=== PATIENT | female | born 1950 | race Caucasian/White ===

== ENCOUNTER → 2019-06-19 08:29 | Outpatient (CLI) | payer MEDICARE, SELFPAY ==
--- NOTE | ~2019-06-19 | MR_ITS ---
EXAMINATION: MR shoulder LT wo con DATE: 06/19/2019 09:12 INDICATION: Adhesive capsulitis of the left shoulder with left shoulder pain. TECHNIQUE: Magnetic resonance imaging (MRI) of the left shoulder was performed without intravenous co ntrast. Sequences included axial PD-weighted FS FSE, coronal oblique PD-weighted FS FSE, coronal obli que T2-weighted FS FSE, sagittal PD-weighted FS FSE, and sagittal T1-weighted SE. COMPARISON: Left shoulder radiographs dated 03/12/2019 FINDINGS: Coracoacromial arch: The acromion undersurface is curved in morphology (type II). The coracoacromial ligament is normal. M ild to moderate acromioclavicular osteoarthritis. Rotator cuff: Mild distal supraspinatus tendinopathy. There is increased signal and thinning subtle of the most con joined portion of the supraspinatus and infraspinatus tendons with subtle concave contour to the burs al surface at the junction of the superior and middle facet footplate without a definitive fluid sign al intensity tear defect or retracted tear margin consistent with a mild intrasubstance tear. The sub scapularis and teres minor tendons are normal. Normal rotator cuff muscle bulk and signal. There is i ncreased soft tissue at the rotator cuff interval with decrease in the normal T1 hyperintense fat sig nal which can be seen in the setting of adhesive capsulitis. Biceps tendon, glenoid labrum and glenohumeral cartilage: Long head of the biceps tendon is normal. There is nonfocal increased signal at the posterior superio r glenoid labrum consistent with mild degeneration without discrete labral tear. Partial-thickness ca rtilage loss with smooth chondral surface along the cephalad half of the glenoid. Fluid: Physiologic amount of fluid in the glenohumeral joint and biceps tendon sheath. No loose osteochondra l bodies. Small amount of fluid in the subacromial/subdeltoid bursa consistent with mild bursitis. Bones/other: Subarticular cystic change and marrow edema at both sides of the acromioclavicular joint. Marrow sign al is otherwise normal with no fracture or pathologic marrow replacing process. Mild cystic change at the greater tuberosity. There is mild thickening of the anterior inferior glenohumeral ligament and joint capsule at the axillary recess which also can be seen with adhesive capsulitis. IMPRESSION: 1. Mild supraspinatus tendinopathy and likely mild partial-thickness intrasubstance tear at the inser tion of the conjoined portion of the supraspinatus and infraspinatus tendons. 2. Thickening of the anteroinferior glenohumeral ligament, joint capsule at the axillary recess and i ncreased soft tissue at the rotator cuff interval, all findings which can be seen in the setting of a dhesive capsulitis which is a clinical diagnosis. 3. Mild to moderate acromioclavicular osteoarthritis with mild underlying subacromial/subdeltoid burs itis. 4. Mild glenohumeral osteoarthritis with mild degeneration at the posterosuperior glenoid labrum. Reviewed, dictated and finalized at location A. [employer] IMPRESSION: 1. Mild supraspinatus tendinopathy and likely mild partial-thickness intrasubst ance tear at the insertion of the conjoined portion of the supraspinatus and in fraspinatus tendons. 2. Thickening of the anteroinferior glenohumeral ligament, joint capsule at the axillary recess and increased soft tissue at the rotator cuff interval, all fi ndings which can be seen in the setting of adhesive capsulitis which is a clini simi diagnosis. 3. Mild to moderate acromioclavicular osteoarthritis with mild underlying subac romial/subdeltoid bursitis. 4. Mild glenohumeral osteoarthritis with mild degeneration at the posterosuperi or glenoid labrum.
== END ==
PROVIDERS: Visit Provider Orthopaedic Surgery
DX: M75.02 Adhesive capsulitis of left shoulder (principal); M75.52 Bursitis of left shoulder; M19.012 Primary osteoarthritis, left shoulder
CPT/HCPCS: 73221

== ENCOUNTER 2019-11-12 10:06 | Outpatient (CLI) | payer MEDICARE, SELFPAY ==
--- NOTE | ~2019-11-12 | MM_ITS ---
EXAMINATION: MM screening [facility] BI [facility] [place] HISTORY: Screening mammogram TECHNIQUE: Craniocaudal and mediolateral oblique 3-D tomosynthesis images were obtained and synthetic 2-D images were generated. CAD analysis was submitted and interpreted. COMPARISON: Comparison to multiple prior studies sequentially, with oldest reviewed study dated 08/25. BREAST PARENCHYMAL COMPOSITION: There are scattered areas of fibroglandular density. FINDINGS: There is no evidence of suspicious mass, calcification, or architectural distortion to sugg est malignancy in either breast. There has been no suspicious interval change. IMPRESSION: 1. No mammographic evidence of malignancy. 2. Recommend routine screening mammography in one year. BI-RADS Category 1: Negative Reviewed, dictated and finalized at location A.
== END 2019-11-12 10:07 | disposition home or self-care (01) ==
LOC: ANHIMG 10:15
PROVIDERS: PCP Internal Medicine; Visit Provider Nurse Practitioner Obstetrics & Gynecology
DX: Z12.31 Encounter for screening mammogram for malignant neoplasm of breast (principal)
CPT/HCPCS: 77063; 77067

== ENCOUNTER 2020-11-17 15:14 | Outpatient (CLI) | payer MEDICARE, SELFPAY ==
--- NOTE | ~2020-11-17 | MM_ITS ---
EXAMINATION: MM screening [facility] [place] HISTORY: Screening mammogram TECHNIQUE: Craniocaudal and mediolateral oblique 3-D tomosynthesis images were obtained and synthetic 2-D images were generated. CAD analysis was submitted and interpreted. COMPARISON: 11/12/2019, 10/04/2018, 09/18/2018, 09/06/2017 BREAST PARENCHYMAL COMPOSITION: The breasts are heterogeneously dense, which may obscure small masses . FINDINGS: There is no evidence of suspicious mass, calcification, or architectural distortion to sugg est malignancy in either breast. There has been no suspicious interval change. IMPRESSION: 1. No mammographic evidence of malignancy. 2. Recommend routine screening mammography in one year. BI-RADS Category 1: Negative Reviewed, dictated and finalized at location A.
== END 2020-11-17 15:15 | disposition home or self-care (01) ==
LOC: ANHIMG 15:20
PROVIDERS: PCP Internal Medicine; Visit Provider Nurse Practitioner Obstetrics & Gynecology
DX: Z12.31 Encounter for screening mammogram for malignant neoplasm of breast (principal)
CPT/HCPCS: 77063; 77067

== ENCOUNTER → 2020-12-31 12:16 | Outpatient (CLI) | payer MEDICARE, SELFPAY ==
--- NOTE | ~2020-12-31 | DEXA_ITS ---
Bone Density Report Name: Elissa Vazquez Age: 70 Sex: Female Ethnicity: White Date of : 1950 Indication: postmenopausal; screening for osteoporosis; parental hip fracture; Referring Provider: Dieter, Nicky Kenny Study: Bone densitometry was performed. Exam Date: December 31, 2020 Accession number: [id number] Bone Density: Region BMD T-score Z-score Classification AP Spine (L1-L4) 1.058 0.1 2.2 Normal Femoral Neck (Left) 0.704 -1.3 0.5 Osteopenia Total Hip (Left) 0.945 0.0 1.5 Normal Femoral Neck (Right) 0.723 -1.1 0.6 Osteopenia Total Hip (Right) 0.881 -0.5 1.0 Normal Total Hip Mean 0.913 -0.3 1.3 Normal World Health Organization criteria for BMD impression classify patients as: Normal (T-score at or above -1.0), Osteopenia (T-score between -1.0 and -2.5), or Osteoporosis (T-score at or below -2.5). 10-year Fracture Risk(1): Major Osteoporotic Fracture 15% Hip Fracture 2.3% Reported Risk Factors: [place] (), Neck BMD=0.704, BMI=24.3, parental fracture (1) FRAX(R) Version 3.08. Fracture probability calculated for an untreated patient. Fracture probability may be lower if the patient has received treatment. Previous Exams: Region Exam Age BMD T-score BMD Change BMD Change Date g/cm2 vs Baseline vs Previous AP Spine(L1-L4) 12/31/2020 70 1.058 0.1 -0.214 -0.014 08/15/2017 67 1.071 0.2 -0.201 -0.004 01/17/2013 62 1.075 0.3 -0.197 0.056* 04/13/2009 58 1.019 -0.3 -0.253 -0.001 02/14/2007 56 1.020 -0.2 -0.251 -0.251 11/21/2002 52 1.272 2.0 Total Hip(Left) 12/31/2020 70 0.945 0.0 0.027 0.030* 08/15/2017 67 0.916 -0.2 -0.002 -0.055* 01/17/2013 62 0.970 0.2 0.052 0.022 04/13/2009 58 0.948 0.1 0.030 0.031* 02/14/2007 56 0.917 -0.2 -0.001 -0.001 11/21/2002 52 0.918 -0.2 Total Hip(Right) 12/31/2020 70 0.881 -0.5 -0.026 0.036* 08/15/2017 67 0.845 -0.8 -0.062 -0.075* 01/17/2013 62 0.920 -0.2 0.013 0.031* 04/13/2009 58 0.889 -0.4 -0.018 0.021 02/14/2007 56 0.868 -0.6 -0.039 -0.039 11/21/2002 52 0.907 -0.3 *Denotes significance at 95% confidence level, LSC for AP Spine = 0.022 g/cm2, LSC for Total Hip = 0.027 g/cm2 Clinical Information Provided by Patient:
== END ==
PROVIDERS: PCP Internal Medicine; Visit Provider Obstetrics & Gynecology
DX: Z78.0 Asymptomatic menopausal state (principal); M85.89 Other specified disorders of bone density and structure, multiple sites
CPT/HCPCS: 77080

== ENCOUNTER → 2021-02-05 14:02 | Outpatient (CLI) | payer MEDICARE, SELFPAY ==
--- NOTE | ~2021-02-05 | XR_ITS ---
XR shoulder RT min 2V DATE: 02/05/2021 14:20 INDICATION: Right shoulder pain TECHNIQUE: 4 views COMPARISON: None FINDINGS: No fracture or dislocation, periosteal reaction or bone destruction or abnormal soft tissue calcification. IMPRESSION: No significant abnormality Reviewed, dictated and finalized at location A. IMPRESSION: No significant abnormality
== END ==
PROVIDERS: PCP Internal Medicine; Visit Provider Internal Medicine
DX: M25.511 Pain in right shoulder (principal)
CPT/HCPCS: 73030

== ENCOUNTER 2021-08-25 09:11 | Outpatient (CLI) | payer MEDICARE, SELFPAY ==
--- NOTE | ~2021-08-25 | US_ITS ---
EXAMINATION: US thyroid EXAM DATE: 08/25/2021 10:04 INDICATION: E04.2 - Nontoxic multinodular goiter . TECHNIQUE: Multiple grayscale and Doppler images of the thyroid were obtained (by a technologist who performed the scan) and subsequently reviewed. Individual nodules and recommendations may be reporte d in accordance with TI-RADS system as designated by the 2017 ACR White Paper TI-RADS committee. Comp anniason is made to prior examination from 07/19/2017. FINDINGS: The right thyroid lobe measures 4.7 x 2.3 x 2.0 cm, the left measuring 4.5 x 1.4 x 1.4 cm. Mildly dif fusely heterogeneous thyroid parenchyma with scattered thyroid nodules. Largest right thyroid lobe nodule was previously hypoechoic, now appears more isoechoic category TR 3 nodule measuring 1.4 x 1.3 x 1.3 cm, stable. The other right thyroid lobe nodules are subcentimeter. Largest left thyroid predominantly solid lower pole nodule measures 9 x 8 x 7 cm, appears to have de creased in size compared to prior study. IMPRESSION: Stable multinodular goiter. Return to clinical follow-up and if additional palpable abn ormality develops a repeat ultrasound can be obtained. Reviewed, dictated and finalized at location A. [employer] IMPRESSION: Stable multinodular goiter. Return to clinical follow-up and if a dditional palpable abnormality develops a repeat ultrasound can be obtained.
== END 2021-08-25 09:12 | disposition home or self-care (01) ==
LOC: ANHIMG 09:11
PROVIDERS: PCP Internal Medicine; Visit Provider Otolaryngology
DX: E04.2 Nontoxic multinodular goiter (principal)
CPT/HCPCS: 76536

== ENCOUNTER 2021-12-21 09:04 | Outpatient (CLI) | payer MEDICARE, SELFPAY ==
--- NOTE | ~2021-12-21 | MM_ITS ---
EXAMINATION: MM screening [facility] [place] HISTORY: Screening mammogram TECHNIQUE: Craniocaudal and mediolateral oblique 3-D tomosynthesis images were obtained and synthetic 2-D images were generated. CAD analysis was submitted and interpreted. COMPARISON: Serial mammogram examinations dating back to 09/06/2017 BREAST PARENCHYMAL COMPOSITION: The breasts are heterogeneously dense, which may obscure small masses . FINDINGS: Right breast: There is no evidence of suspicious mass, calcification, or architectural distortion to suggest malignancy in either breast. There has been no suspicious interval change. Left breast: There is asymmetry and architectural distortion posteriorly in the mid upper left breast on MLO view. Diagnostic left mammogram and left breast ultrasound examination are recommended. Biopsy marker in the lower mid left breast IMPRESSION: 1. Left mammographic asymmetry and architectural distortion in posterior mid to upper breast on MLO v iew 2. Diagnostic left mammogram and left breast ultrasound examination are recommended. BI-RADS Category 0: Incomplete: Needs additional imaging evaluation. Reviewed, dictated and finalized at location A. IMPRESSION: 1. Left mammographic asymmetry and architectural distortion in posterior mid to upper breast on MLO view 2. Diagnostic left mammogram and left breast ultrasound examination are recomme nded. BI-RADS Category 0: Incomplete: Needs additional imaging evaluation.
== END 2021-12-21 09:05 | disposition home or self-care (01) ==
PROVIDERS: PCP Internal Medicine; Visit Provider Nurse Practitioner Obstetrics & Gynecology
DX: Z12.31 Encounter for screening mammogram for malignant neoplasm of breast (principal); R92.8 Other abnormal and inconclusive findings on diagnostic imaging of breast
CPT/HCPCS: 77063; 77067

== ENCOUNTER 2022-01-10 12:15 | Outpatient (CLI) | payer MEDICARE, SELFPAY ==
--- NOTE | ~2022-01-10 | MMUS_ITS ---
EXAMINATION: MM diagnostic [facility] LT w [place], US breast LT complete HISTORY: Follow-up left breast asymmetry TECHNIQUE: Additional 3-D tomosynthesis images of the left breast were performed and synthetic 2-D im ages were generated. CAD analysis was submitted and interpreted. High resolution complete left breast ultrasound was performed. COMPARISON: Comparison to multiple prior studies sequentially, with oldest reviewed study dated 09/18. BREAST PARENCHYMAL COMPOSITION: Breast composed of scattered areas of fibroglandular density FINDINGS: MAMMOGRAPHIC FINDINGS: There are no suspicious masses, calcifications or architectural distortion in the left breast to sugg est malignancy. There is a tissue marker in the lower outer quadrant. ULTRASOUND: Complete US of all 4 quadrants of the the left breast and retroareolar region was reviewed. Normal he terogeneous echotexture without focal mass. IMPRESSION: 1. No mammographic or sonographic evidence for malignancy in the left breast. 2. Routine yearly screening mammogram and regular clinical breast examination are recommended. BI-RADS Category 1: Negative Reviewed, dictated and finalized at location A. IMPRESSION: 1. No mammographic or sonographic evidence for malignancy in the left breast. 2. Routine yearly screening mammogram and regular clinical breast examination a re recommended. BI-RADS Category 1: Negative
== END 2022-01-10 12:16 | disposition home or self-care (01) ==
PROVIDERS: PCP Internal Medicine; Visit Provider Nurse Practitioner Obstetrics & Gynecology
DX: R92.8 Other abnormal and inconclusive findings on diagnostic imaging of breast (principal)
CPT/HCPCS: 76641; 77061; 77065; G0279

== ENCOUNTER 2022-09-23 09:33 | Outpatient (CLI) | payer MEDICARE, SELFPAY ==
--- NOTE | ~2022-09-23 | US_ITS ---
Thyroid ultrasound. Clinical History: Nontoxic multinodular goiter COMPARISON: 08/25/2021 Findings: Real-time sonography of the thyroid gland was performed. The right lobe measures 5.3 x 2.2 x 1.8 cm. The left lobe measures 4.3 x 1.6 x 1.4 cm. The isthmus is 3 mm in AP diameter. At the posterior aspect of the right mid pole, there is a 1.4 x 1.4 x 1.2 cm isolated hypoechoic amina d round nodule. There is also 1.3 x 1.0 x 0.9 cm mixed solid and cystic nodule at the right lower gloria e. Multiple additional subcentimeter hypoechoic or cystic right thyroid lobe nodules are present. There is a 0.7 cm cystic nodule at the right side of the isthmus. There is a 9 mm solid nodule at the left side of the isthmus. There is a 1.2 x 1.0 x 0.9 cm mixed solid and cystic nodule at the left mid to lower pole. There is a 1.4 x 1.0 x 0.5 cm mixed solid and cystic nodule at the left mid pole near the isthmus. Additional s ubcentimeter left thyroid lobe nodules are present. Impression: Multiple bilateral thyroid nodules, as detailed above, overall without significant change from prior exam. Findings are consistent with multinodular goiter. Reviewed, dictated and finalized at location . [employer] Impression: Multiple bilateral thyroid nodules, as detailed above, overall without signific ant change from prior exam. Findings are consistent with multinodular goiter.
== END 2022-09-23 09:34 | disposition home or self-care (01) ==
PROVIDERS: PCP Internal Medicine; Visit Provider Otolaryngology
DX: E04.2 Nontoxic multinodular goiter (principal)
CPT/HCPCS: 76536

== ENCOUNTER 2023-02-21 08:44 | Outpatient (CLI) | payer MEDICARE, SELFPAY ==
--- NOTE | ~2023-02-21 | DEXA_ITS ---
Bone Density Report Name: APRYL BURROUGHS Age: 72 Sex: Female Ethnicity: White Date of : 1950 Indication: postmenopausal; screening for osteoporosis; parental hip fracture; Referring Provider: NICK, BOAZ Kenny Study: Bone densitometry was performed. Exam Date: February 21, 2023 Accession number: [id number] Bone Density: Region BMD T-score Z-score Classification AP Spine(L1-L4) 1.064 0.2 2.4 Normal Femoral Neck (Left) 0.758 -0.8 1.1 Normal Total Hip (Left) 0.887 -0.5 1.1 Normal Femoral Neck (Right) 0.727 -1.1 0.8 Osteopenia Total Hip (Right) 0.816 -1.0 0.6 Normal Total Hip Mean 0.851 -0.8 0.9 Normal World Health Organization criteria for BMD impression classify patients as: Normal (T-score at or above -1.0), Osteopenia (T-score between -1.0 and -2.5), or Osteoporosis (T-score at or below -2.5). 10-year Fracture Risk(1): Major Osteoporotic Fracture 14% Hip Fracture 3.1% Reported Risk Factors: [place] (), Neck BMD=0.727, BMI=24.1, parental fracture (1) FRAX(R) Version 3.08. Fracture probability calculated for an untreated patient. Fracture probability may be lower if the patient has received treatment. Clinical Information Provided by Patient: Parent has had a hip fracture Has the following medical conditions: tubes removed Patient maximum height was 69 Menopause Age: 41 Onset of menses at age 14 Number of children 1 Impression: The patient has low bone mass, based on the Right Femoral Neck T-score. The patient has an estimated ten-year risk of hip fracture of 3.1% and an estimated ten-year risk of major fracture of 14%, based on the WHO FRAX algorithm. The patient has risk factors, including: parental hip fracture. Discussion: BONE DENSITY IS LOW AT ONE OR MORE SKELETAL SITES. THE PATIENT'S BMD AND CLINICAL RISK FACTORS CONTRIBUTE TO THIS PATIENT'S INCREASED RISK OF FRACTURE. This patient's lowest T-score is low at one or more skeletal sites. It meets the World Health Organization's (WHO) criteria for ?low bone mass? (T-score between -1.0 and -2.5). The patient's 10-year risk of hip fracture as calculated by FRAX exceeds the threshold where pharmacological therapy is recommended by the National Osteoporosis Foundation (NOF). However, all treatment decisions require clinical judgment and consideration of individual patient factors, including patient preferences, comorbidities, previous drug use, risk factors not captured in the FRAX model (e.g., frailty, falls, vitamin D deficiency, increased bone turnover, interval significant decline in bone density) and possible under or overestimation of fracture risk by FRAX. The patient should follow a healthful lifestyle (good nutrition with adequate calcium and vitamin D, and appropriate weight-bearing exercise).
--- NOTE | ~2023-02-21 | MM_ITS ---
EXAMINATION: MM screening [facility] BI [facility] [place] HISTORY: Screening mammogram TECHNIQUE: Craniocaudal and mediolateral oblique 3-D tomosynthesis images were obtained and synthetic 2-D images were generated. CAD analysis was submitted and interpreted. COMPARISON: Prior mammograms dating back to 09/18/2018 BREAST PARENCHYMAL COMPOSITION: The breasts are heterogeneously dense, which may obscure small masses . FINDINGS: No suspicious mass, calcification, or architectural distortion are identified in either marcio ast to suggest malignancy. There has been no suspicious interval change. IMPRESSION: 1. No mammographic evidence of malignancy. 2. Recommend routine screening mammography in one year. BI-RADS Category 1: Negative Reviewed, dictated and finalized at location D.
== END 2023-02-21 08:45 | disposition home or self-care (01) ==
PROVIDERS: PCP Internal Medicine; Visit Provider Nurse Practitioner Obstetrics & Gynecology
DX: Z12.31 Encounter for screening mammogram for malignant neoplasm of breast (principal); M85.89 Other specified disorders of bone density and structure, multiple sites; Z78.0 Asymptomatic menopausal state
CPT/HCPCS: 77063; 77067; 77080

== ENCOUNTER 2024-02-27 09:06 | Outpatient (CLI) | payer MEDICARE, SELFPAY ==
--- NOTE | ~2024-02-27 | MM_ITS ---
EXAMINATION: MM screening [facility] [place] HISTORY: Screening TECHNIQUE: Craniocaudal and mediolateral oblique 3-D tomosynthesis images were obtained and synthetic 2-D images were generated. CAD analysis was submitted and interpreted. COMPARISON: Comparison to multiple prior studies sequentially, with oldest reviewed study dated 12/11. BREAST PARENCHYMAL COMPOSITION: Dense: The breasts are heterogeneously dense, which may obscure small masses FINDINGS: There is no evidence of suspicious mass, calcification, or architectural distortion to sugg est malignancy in either breast. There has been no suspicious interval change. IMPRESSION: 1. No mammographic evidence of malignancy. 2. Recommend routine screening mammography in one year. BI-RADS Category 1: Negative Reviewed, dictated and finalized at location B.
== END 2024-02-27 09:07 | disposition home or self-care (01) ==
LOC: ANHIMG 09:08
PROVIDERS: PCP Internal Medicine; Visit Provider Internal Medicine
DX: Z12.31 Encounter for screening mammogram for malignant neoplasm of breast (principal)
CPT/HCPCS: 77063; 77067

== ENCOUNTER 2024-04-30 00:32 | Day surgery (SDC) | payer MEDICARE, SELFPAY ==
[2024-04-18 15:38] VITALS: BMI 23.6
--- NOTE | 2024-04-22 16:42 | PC.NURSE ---
Spoke with _patient_ regarding medication _XARELTO_. Pt. verbalizes understanding that the last dose of _XARELTO_ is to be taken on _04/27/2024_ and the Endoscopist will instruct them when to restart after the procedure.
[2024-04-30 07:36] VITALS: BP 143/66; PULSE 81; RESP 18; TEMP 36.4; O2SAT 100; BMI 23.9
[2024-04-30] MEDS: LACTATED RINGERS 1,000 ML 30 ML IV CONT (07:51)
--- NOTE | 2024-04-30 08:17 | PM.HPGS ---
History of Present Illness History of Present Illness Consent: Risks, benefits, and alternatives have been discussed and questions answered. Patient agrees to proceed with procedure. Chief complaint: Personal hx colon polyps Narrative: Elissa Vazquez is a 73 year old female with colon polyp in 2019 Review of Systems Review of Systems: All systems reviewed & are unremarkable except as noted in HPI and below PMFSH Past Medical History Medical History Adhesive capsulitis of left shoulder (~11/2018) Afib Elevated lipids Endometriosis History of needle biopsy (~2018) Hypertension Osteoarthritis of left shoulder Surgical History Surgical History H/O bilateral oophorectomy History of breast biopsy Previous section Family History Family History Sibling Diverticulosis Sibling FH: prostate cancer Father CHF (congestive heart failure) Renal failure Mother Hypertension Mother Hypertension Father Family history of kidney disease Malignant neoplasm of prostate Family history of renal failure, Onset Age: 90 Family history of congestive heart failure, Onset Age: 90 Family history of Parkinson's disease Family history of heart disease in male family member before age 55 Sibling Malignant neoplasm of prostate Family history of colonic diverticulitis Patient's brother is in good health Social History Social History Smoking status: Never smoker Second hand tobacco smoke exposure: Yes Alcohol intake: current Substance use: never Substance use type: does not use Lack of Transportation: No Lack of Food: Never True Current Housing: I Have Housing Concerned About Future Housing: No Difficulty Paying Gas/Electric Bills: No Difficulty Paying for Meds: No Currently Unemployed: No Education: High School Diploma/GED Difficulty w/ Childcare or Family Care: No Living arrangements: with family Spiritual care concerns: No Meds Home Medications and Allergies Home Medications Medication Instructions Recorded Confirmed Type rivaroxaban 20 mg tablet (Xarelto) 20 mg PO DAILY #1 tablet 05/14/19 04/18/24 Rx metoprolol tartrate 25 mg tablet 25 mg PO BID 09/07/22 04/18/24 History rosuvastatin 5 mg tablet See Rx Instructions .Route 10/23/23 04/18/24 Rx .COMPLEX #100 tabs losartan 100 1 tablet PO DAILY #90 tabs 01/09/24 04/18/24 Rx mg-hydrochlorothiazide 12.5 mg tablet Allergies Allergy/AdvReac Type Severity Reaction Status Date / Time JIMMIE Inhibitors Allergy Mild Cough Verified 04/18/24 15:44 verapamil Allergy Mild rash Verified 04/18/24 15:44 ciprofloxacin AdvReac Mild Unknown Verified 04/18/24 15:44 Vital Signs Vital Signs - 24 hr 04/30/24 07:36 Temperature 97.6 F Pulse Rate 81 Respiratory Rate 18 Blood Pressure 143/66 H Pulse Oximetry 100 Oxygen Delivery Room Air Exam Const: General: comfortable and no acute distress HENMT: Face/Nose/Sinus: Normal nares present Eyes: General: appearance normal, both eyes and all related structures Neck: Neck: no JVD Resp: Auscultation: clear to auscultation bilaterally Cardio: Rate: regular rate Rhythm: regular rhythm GI: Inspection: non-distended GI Palp: Yes Soft to palpation Skin: General skin exam: normal color Neuro: General: gait normal Speech: normal speech Extrem: General: normal to inspection Psych: Mental Status: mental status grossly normal Assessment and Plan Assessment and plan (1) History of adenomatous polyp of colon: Code(s): Z86.010 - Personal history of colon polyps Status: Acute Assessment and Plan: colonoscopy
--- NOTE | 2024-04-30 08:21 | WPDANESEPPF ---
Anes - Initial Pre Proc Eval Procedure: Operation Date: 04/30/24 09:00 Proposed Procedures p Colonoscopy - Jerry Sanchez MD Date/Time: 04/30/24 08:21 Surgeon: Jerry Sanchez MD Pre Op Diagnosis: Personal hx colon polyps Patient Data Age: 73 Gender: F Height: 1.75 m Weight: 73.5 kg Last Vital Signs Temp 97.6 F 04/30/24 07:36 Pulse 81 04/30/24 07:36 Resp 18 04/30/24 07:36 BP 143/66 H 04/30/24 07:36 Pulse Ox 100 04/30/24 07:36 O2 Del Method Room Air 04/30/24 07:36 Allergies Allergy/AdvReac Type Severity Reaction Status Date / Time JIMMIE Inhibitors Allergy Mild Cough Verified 04/18/24 15:44 verapamil Allergy Mild rash Verified 04/18/24 15:44 ciprofloxacin AdvReac Mild Unknown Verified 04/18/24 15:44 Home Medications Medication Instructions Recorded Confirmed Type rivaroxaban 20 mg tablet (Xarelto) 20 mg PO DAILY #1 tablet 05/14/19 04/18/24 Rx metoprolol tartrate 25 mg tablet 25 mg PO BID 09/07/22 04/18/24 History rosuvastatin 5 mg tablet See Rx Instructions .Route 10/23/23 04/18/24 Rx .COMPLEX #100 tabs losartan 100 1 tablet PO DAILY #90 tabs 01/09/24 04/18/24 Rx mg-hydrochlorothiazide 12.5 mg tablet Patient hx anesthesia problems: none Family hx anesthesia problems: none Results Review: All pre-operative results and documents have been reviewed as part of the pre-operative evaluation. [facility] Past Medical History Medical History Adhesive capsulitis of left shoulder (~11/2018) Afib Elevated lipids Endometriosis History of needle biopsy (~2018) Hypertension Osteoarthritis of left shoulder Surgical History Surgical History H/O bilateral oophorectomy History of breast biopsy Previous section Family History Family History Sibling Diverticulosis Sibling FH: prostate cancer Father CHF (congestive heart failure) Renal failure Mother Hypertension Mother Hypertension Father Family history of kidney disease Malignant neoplasm of prostate Family history of renal failure, Onset Age: 90 Family history of congestive heart failure, Onset Age: 90 Family history of Parkinson's disease Family history of heart disease in male family member before age 55 Sibling Malignant neoplasm of prostate Family history of colonic diverticulitis Patient's brother is in good health Social History Social History Smoking status: Never smoker Second hand tobacco smoke exposure: Yes Alcohol intake: current Substance use: never Substance use type: does not use Lack of Transportation: No Lack of Food: Never True Current Housing: I Have Housing Concerned About Future Housing: No Difficulty Paying Gas/Electric Bills: No Difficulty Paying for Meds: No Currently Unemployed: No Education: High School Diploma/GED Difficulty w/ Childcare or Family Care: No Living arrangements: with family Spiritual care concerns: No Anes - Eval Final PreProcedure Day of Procedure 04/30/24 08:21 Patient weight: normal Heart: regular rate and rhythm Lungs: clear to auscultation Airway: Mallampati scale class II Neurological: alert and oriented Last oral intake: >/= 8 hours ASA classification: II Emergent: no Anesthetic plan: proceed Anesthesia type and monitoring: general GIVS and standard monitoring Results Review: All pre-operative results and documents have been reviewed as part of the pre-operative evaluation. HTN, hyperlipidemia, pafib. ECHO 2020 w nml LVEF. Informed Consent: The patient's anesthetic plan and its attendant risks and benefits were discussed with the patient/family/POA. Questions were solicited and answers provided to the satisfaction of the patient/f
[2024-04-30 08:41] VITALS: BP 102/43; PULSE 50; RESP 18; O2SAT 96
[2024-04-30 08:51] VITALS: BP 111/46; PULSE 48; RESP 14; O2SAT 97
[2024-04-30 09:01] VITALS: BP 125/52; PULSE 52; RESP 23; O2SAT 100
== END 2024-04-30 09:10 | disposition home or self-care (01) ==
PROVIDERS: PCP Internal Medicine; Visit Provider Internal Medicine Gastroenterology
PROC: 0DJD8ZZ Inspection of Lower Intestinal Tract, Via Natural or Artificial Opening Endoscopic (ICD-10-PCS; CPT 45378; principal; 2024-04-30 09:00)
DX: Z12.11 Encounter for screening for malignant neoplasm of colon (principal); K64.8 Other hemorrhoids; K57.30 Diverticulosis of large intestine without perforation or abscess without bleeding; I10 Essential (primary) hypertension; M19.012 Primary osteoarthritis, left shoulder; I48.91 Unspecified atrial fibrillation; N80.9 Endometriosis, unspecified; Z79.01 Long term (current) use of anticoagulants; Z98.890 Other specified postprocedural states; Z86.0100 Personal history of colon polyps, unspecified; Z80.42 Family history of malignant neoplasm of prostate; Z82.49 Family history of ischemic heart disease and other diseases of the circulatory system
CPT/HCPCS: G0105; J7120

== ENCOUNTER 2024-08-13 10:46 | Outpatient (CLI) | payer MEDICARE, SELFPAY ==
--- NOTE | ~2024-08-13 | XR_ITS ---
XR tibia fibula RT 2V Ordering provider: Ehsan Thomas DO History: . M79.606 - Pain in leg, unspecified . Comparison: None. FINDINGS: BONES: No acute fracture or dislocation. JOINT SPACES: Normal. SOFT TISSUES: Normal. IMPRESSION: No acute osseous abnormality right leg. Reviewed, dictated and finalized at location A. SSING CLERK
== END 2024-08-13 10:47 | disposition home or self-care (01) ==
LOC: ANHIMG 10:48
PROVIDERS: PCP Internal Medicine; Visit Provider Internal Medicine
DX: M79.606 Pain in leg, unspecified (principal)
CPT/HCPCS: 73590

== ENCOUNTER 2024-10-15 10:16 | Outpatient (CLI) | payer MEDICARE, SELFPAY ==
--- NOTE | ~2024-10-15 | US_ITS ---
Thyroid ultrasound. Clinical History: Thyroid nodule COMPARISON: 09/23/2022 Findings: Real-time sonography of the thyroid gland was performed. The right lobe measures 4.8 x 2.1 x 1.7 cm. The left lobe measures 3.7 x 1.6 x 1.4 cm. The isthmus is 2 mm in AP diameter. At the inferior left hepatic lobe, there is a 1.9 x 1.0 x 0.8 cm mixed solid and cystic circumscribed nodule. Also the left lower pole is an additional 1.0 x 0.8 x 0.8 cm mixed solid and cystic lesion. At the posterior right lower pole is a 1.5 x 1.2 x 1.4 cm hypoechoic solid homogeneous nodule. Multip le additional cystic nodules are present in the right thyroid lobe, less than 1 cm in diameter. There is a 0.6 x 0.7 x 0.5 cm probable spongiform nodule in the isthmus.. Impression: Bilateral thyroid nodules, as detailed above, without significant interval change. Reviewed, dictated and finalized at location . Impression: Bilateral thyroid nodules, as detailed above, without significant interval jernigan ge.
== END 2024-10-15 10:17 | disposition home or self-care (01) ==
LOC: MICIMG 10:17
PROVIDERS: PCP Internal Medicine; Visit Provider Otolaryngology Otolaryngology/Facial Plastic Surgery
DX: E04.1 Nontoxic single thyroid nodule (principal)
CPT/HCPCS: 76536

== ENCOUNTER 2025-06-20 13:48 | Outpatient (CLI) | payer MEDICARE, SELFPAY ==
--- NOTE | ~2025-06-20 | MM_ITS ---
EXAMINATION: MM screening rhiannon BI w celina HISTORY: Screening TECHNIQUE: Craniocaudal and mediolateral oblique 3-D tomosynthesis images were obtained and synthetic 2-D images were generated. CAD analysis was submitted and interpreted. COMPARISON: Comparison to multiple prior studies sequentially, with oldest reviewed study dated 11/12/2019. BREAST PARENCHYMAL COMPOSITION: The breasts are heterogeneously dense, which may obscure small masses. FINDINGS: There is no evidence of suspicious mass, calcification, or architectural distortion to suggest malignancy in either breast. There has been no suspicious interval change. IMPRESSION: 1. No mammographic evidence of malignancy. 2. Recommend routine screening mammography in one year. BI-RADS Category 1: Negative Reviewed, dictated and finalized at location O. INUOUS IMPROVEMENT CONSULTANT
== END 2025-06-20 13:49 | disposition home or self-care (01) ==
LOC: MICIMG 13:54
PROVIDERS: PCP Nurse Practitioner; Visit Provider Nurse Practitioner
DX: Z12.31 Encounter for screening mammogram for malignant neoplasm of breast (principal)
CPT/HCPCS: 77063; 77067

== ENCOUNTER 2025-07-02 12:19 | Outpatient (CLI) | payer MEDICARE, SELFPAY ==
--- NOTE | ~2025-07-02 | DEXA_ITS ---
Bone Density Report Name: APRYL BURROUGHS Age: 74 Sex: Female Ethnicity: White Date of : 1950 Indication: postmenopausal; screening for osteoporosis; parental hip fracture; height loss; Referring Provider: CHINYERE, AKI Brown Study: Bone densitometry was performed. Exam Date: July 02, 2025 Accession number: [id number] Bone Density: Region BMD T-score Z-score Classification AP Spine(L1-L4) 1.081 0.3 2.6 Normal Femoral Neck (Left) 0.744 -0.9 1.1 Normal Total Hip (Left) 0.878 -0.5 1.2 Normal Femoral Neck (Right) 0.709 -1.3 0.8 Osteopenia Total Hip (Right) 0.829 -0.9 0.8 Normal Total Hip Mean 0.854 -0.7 1.0 Normal World Health Organization criteria for BMD impression classify patients as: Normal (T-score at or above -1.0), Osteopenia (T-score between -1.0 and -2.5), or Osteoporosis (T-score at or below -2.5). 10-year Fracture Risk(1): Major Osteoporotic Fracture 16% Hip Fracture 6.0% Reported Risk Factors: [place] (), Neck BMD=0.709, BMI=25.4, parental fracture (1) FRAX(R) Version 3.08. Fracture probability calculated for an untreated patient. Fracture probability may be lower if the patient has received treatment. Previous Exams: Region Exam Age BMD T-score BMD Change BMD Change Date g/cm2 vs Baseline vs Previous AP Spine (L1-L4) 07/02/2025 74 1.081 0.3 0.017 (1.6%) 0.017 (1.6%) 02/21/2023 72 1.064 0.2 Total Hip(Left) 07/02/2025 74 0.878 -0.5 -0.008 (-0.9%) -0.008 (-0.9%) 02/21/2023 72 0.887 -0.5 Total Hip(Right) 07/02/2025 74 0.829 -0.9 0.013 (1.6%) 0.013 (1.6%) 02/21/2023 72 0.816 -1.0 *Denotes significance at 95% confidence level, LSC for AP Spine = 0.022 g/cm2, LSC for Total Hip = 0.027 g/cm2 Clinical Information Provided by Patient: Parent has had a hip fracture Has used the following medications: Vitamin D, Calcium Has the following medical conditions: tubes removed Patient maximum height was 69 Menopause Age: 41 Onset of menses at age 14 Number of children 1 Impression: The patient has low bone mass, based on the Right Femoral Neck T-score. The patient has an estimated ten-year risk of hip fracture of 6% and an estimated ten-year risk of major fracture of 16%, based on the WHO FRAX algorithm. The patient has risk factors, including: parental hip fracture. No significant bone loss was observed. Discussion: BONE DENSITY IS LOW AT ONE OR MORE SKELETAL SITES. THE PATIENT'S BMD AND CLINICAL RISK FACTORS CONTRIBUTE TO THIS PATIENT'S INCREASED RISK OF FRACTURE. This patient's lowest T-score is low at one or more skeletal sites. It meets the World Health Organization's (WHO) criteria for ?low bone mass? (T-score between -1.0 and -2.5). The patient's 10-year risk of hip fracture as calculated by FRAX exceeds the threshold where pharmacological therapy is recommended by the National Osteoporosis Foundation (NOF). However, all treatment decisions require clinical judgment and consideration of individual patient factors, including patient preferences, comorbidities, previous drug use, risk factors not captured in the FRAX model (e.g., frailty, falls, vitamin D deficiency, increased bone turnover, interval significant decline in bone density) and possible under or overestimation of fracture risk by FRAX. The patient should follow a healthful lifestyle (good nutrition with adequate calcium and vitamin D, and appropriate weight-bearing exercise). Follow-Up: Consider a repeat BMD and Vertebral Fracture Assessment (VFA) exam in 2 years or sooner if medically necessary, to reassess this patient's status. Reported by: RAKAN on 07/02/2025 12:58:00 PM. Reviewed, dictated and finalized at location A.
--- OUTSIDE RECORDS SUMMARY | 2025-07-02 13:31 | XMS_ITS | Encounter Summary ---
Author Organization [facility] Address [address] [place] [address] Care Team Providers Care Narcotics Investigator Name Role Phone Jarad Barney DO Primary Care Provider Encounter Details Date Type Department Care Team (Late st Contact Info) Description 09/15/2021 Lab Requisition [facility] [address] [place] [address] Paddy Arias MD [address] [place] [address] Social History Tobacco Use Types Packs/Day Years Used Date Smoking Tobacco: Never Assessed Comments Unknown Sex and Gender Information Value Date Recorded Sex Assigned at Not on file Legal Sex Female 11:47 AM CDT Gender Identity Not on file Sexual Orientation Not on file documented as of this encounter Plan of Treatment Not on file documented as of this encounter Procedures Procedure Name Priority Date/Time Associated Diagnosis Comments DERMATOPATHOLOGY Routine 09/14/2021 12:0 0 AM MAGICIAN HELPER documented in this encounter Results * DERMATOPATHOLOGY (09/14/2021 12:00 AM MAGICIAN HELPER) Case Report Dermatopathology Report Case: [id number] Authorizing Provider: Paddy Arias MD Collected: 09/14/2021 12:00 AM Ordering Location: [facility] Received: 09/15/2021 02:58 PM Pathologist: Bess Mcghee MD Specimen: Skin, right back 2 5:15 PM [facility] DERMATOPATHOLOGY LABORATORY Final Diagnosis Specimen A. SKIN, right back: PIGMENTED SEBORRHEIC KERATOSIS (L82.1) 2 5:15 PM MAGICIAN HELPER DERMATOPATHOLOGY LABORATORY at [address] MAGICIAN HELPER Clinical History SK vs melanoma. Path # [id number]. 2 5:15 PM [facility] DERMATOPATHOLOGY LABORATORY Gross Description Specimen A: Received is one formalin filled container labeled with the patient's name and designated right back. The specimen consists of a shave biopsy measuring [id number]. Jar 0. 2 5:15 PM [facility] DERMATOPATHOLOGY LABORATORY Microscopic Description Specimen A. SKIN, right back: Sections show an acanthotic lesion composed of relatively uniform keratinocytes. There is hyperkeratosis and pseudo horn cysts. Pigment is present in the keratinocytes composing this tumor. 2 5:15 PM [facility] DERMATOPATHOLOGY LABORATORY Disclaimer An external and internal positive and negative controls are appropriate for the histochemical, immunohistochemical and immunofluorescence stain(s) in this case (if any), except where stated explicitly. The performance characteristics of the stain(s) cited in this report were developed and its performance characteristic determined by the Dermatopathology Laboratory at [facility], directed by Dr. Linnette Gardner. These tests need not be, and therefore are not, approved by the [place] Food and Drug Administration. The tests are used for clinical purposes. Billing Codes Specimen Charges Stain Charges 37388 1 2 5:15 PM [facility] DERMATOPATHOLOGY LABORATORY Embedded Images 2 5:15 PM [facility] DERMATOPATHOLOGY LABORATORY Pathology/Cytolog y TISSUE SPECIMEN FROM SKIN / Unknown 09/14/2021 09/15/2021 2:58 PM MAGICIAN HELPER us Paddy Arias MD LAB - PATHOLOGY/CYTOLOGY ORDER OLIVIA Final Result DERMATOPATHOLOGY LABORATORY [facility] - Department of Dermatology [facility] Medicine [address] [place] [address], [address] [place] [address], [facility] [phone] documented in this encounter Visit Diagnoses Not on filedocumented in this encounter Care Teams Narcotics Investigator Relationship Specialty Start Date End Date Jarad Barney DO [address] [place] [address] PCP - General 02/14/19 documented as of this encounter
--- OUTSIDE RECORDS SUMMARY | 2025-07-02 13:31 | XMS_ITS | Clinical Summary ---
Author Organization [facility] Address [address] [place] [address] Care Team Providers Care Team Truck Driver Name Role Phone Jarad Barney DO Primary Care Provider [phone] Source Comments [facility],non-owned Affiliates and Associated Physician Practices is amultiple site organization consisting of ambulatory clinics and hospital sitesin [place], [place], [place] and [place]. This disclosure is being madepursuant to the Care Everywhere program and may not contain all information available regarding this patient. Last updated 18.[facility] [employer] Social History Tobacco Use Types Packs/Day Years Used Date Smoking Tobacco: Never Assessed Comments Unknown Sex and Gender Information Value Date Recorded Sex Assigned at Not on file Legal Sex Female 11:47 AM CDT Gender Identity Not on file Sexual Orientation Not on file Plan of Treatment Health Maintenance Due Date Last Done Comments BONE DENSITY TESTING 1950 COLOGUARD (AGES 45-75) - COL ON CA SCREENING 1951 COLON MONITORING 1951 COLONOSCOPY - COLON CA SCREENING 1951 CT COLONOGRAPHY - COLON CA SCREENING 1950 Colorectal Cancer Screening 1950 FIT - COLON CA SCREENING 1951 FLEX SIG - COLON CA SCREENING 1951 LIPID TESTING 1950 MAMMOGRAM 1950 HEPATITIS C SCREENING 07/06/1969 DTAP/TDAP/TD VACCINES (1 - Tdap) 1970 PNEUMOCOCCAL VACCINE 50+ (1 of 1 - PCV) 2001 ZOSTER VACCINE (1 of 2) 2001 DEPRESSION SCREENING 07/31/2024 COVID-19 VACCINE (1 - 2024-2 6 season) 2025 INFLUENZA VACCINE (#1) 2025 Respiratory Syncytial Virus (RSV) Vaccine Pt: or over 60 yrs (1 - 1-dose 75+ series) 2026 HEPATITIS B VACCINE Aged Out No longe r eligible based on patient's age to complete this topic HIB VACCINE Aged Out No longer eligi ble based on patient's age to complete this topic HPV VACCINE Aged Out No longer eligi ble based on patient's age to complete this topic MENINGOCOCCAL (Group B) VACC INE SHARED DECISION-MAKING Aged Out No longer eligibl e based on patient's age to complete this topic MENINGOCOCCAL GROUPS A/C/Y/W VACCINE Aged Out No longer eligible b ased on patient's age to complete this topic Insurance MEDICARE [facility] Care Teams Team Truck Driver Relationship Specialty Start Date End Date Jarad Barney DO [address] [place], [place] [phone] PCP - General 02/14/19
--- OUTSIDE RECORDS SUMMARY | 2025-07-02 13:31 | XMS_ITS | Clinical Summary ---
Author Organization [facility] Address [address] [place] [address] Care Team Providers Care Sports Media Name Role Phone Jarad Barney DO Primary Care Provider [phone] Allergies Active Allergy Reactions Criticality Noted Date Comments Verapamil Rash Medium 03/12/2011 Medications losartan-hydroCH LOROthiazide (HYZAAR) 100-12.5 mg tablet 10/04/2018 Active metoprolol tartrate (LOPRESSOR) 25 mg tablet 09/24/2018 Active fish oil-omega-3 fatty acids 340-1,000 mg Capsule take 1 by Oral route 2 times every day 05/14/2013 Active XARELTO 20 mg Tablet 11/06/2018 Active rosuvastatin (CRESTOR) 5 mg tablet 10/31/2018 Active Active Problems Problem Noted Date Diagnosed Date Fibrocystic change of breast, left 12/18/2018 Usual hyperplasia of lactiferous duct, left 11/29 Sign and symptom in breast 12/11/2018 Abnormal mammogram 12/07/2018 Abnormal ultrasound of breast 12/07/2018 Social History Tobacco Use Types Packs/Day Years Used Date Smoking Tobacco: Never Smokeless Tobacco: Never Alcohol Use Standard Drinks/Week Comments Yes 0 (1 standard drink = 0.6 oz pur e alcohol) Comments No Sex and Gender Information Value Date Recorded Sex Assigned at Not on file Legal Sex Female 11:50 AM CDT Gender Identity Not on file Sexual Orientation Not on file Last Filed Vital Signs Vital Sign Reading Time Taken Comments Blood Pressure 129/96 12/18/2018 11:30 AM CDT Pulse 57 12/18/2018 11:30 AM CDT Temperature 36.9 C (98.5 F) 12/18/2018 11:30 AM CDT Respiratory Rate - - Oxygen Saturation 98% 12/18/2018 11:30 AM CDT Inhaled Oxygen Concentration - - Weight 71.9 kg (158 lb 8 oz) 12/18/2018 11:30 AM CDT Height 175.3 cm (5' 9) 12/18/2018 11:30 AM CDT Body Mass Index 23.41 12/18/2018 11:30 AM CDT Plan of Treatment Health Maintenance Due Date Last Done Comments DTAP/TDAP/TD VACCINES (1 - Tdap) 1970 COLORECTAL SCREENING 1996 Colorectal Cancer Screening 1996 FIT-DNA Q 3 years 1996 FIT/FOBT Q 1 year 1996 Flex Sig/CT Colonography Q 5 years 1996 PNEUMOCOCCAL VACCINE 50+ YEA RS (1 of 1 - PCV) 2001 ZOSTER VACCINE (1 of 2) 2001 OSTEOPOROSIS SCREENING 2016 BREAST CANCER SCREENING 12/12/2019 12/12/19 19, 09/18/2018, 09/06/2017, Additional history exists INFLUENZA VACCINE (#1) 2025 RSV VACCINE (60+ or ) (1 - 1-dose 75+ series) 2026 Procedures Procedure Name Priority Date/Time Associated Diagnosis Comments MAMMO DIAG UNI LEFT 3D JULIANA W OR WO CAD Routine 12/11/2018 Abnormal mammogram Abnormal ultrasound of breast from Last 3 Months or Most Recently Relevant to Health Maintenance Results * MAMMO DIAG UNI LEFT 3D JULIANA W OR WO CAD (12/11/2018) Anatomical Region Laterality Modality Breast Left Mammography Lorelei Duran DO MAMMO ORDERABLES Final Resu lt from Last 3 Months or Most Recently Relevant to Health Maintenance Insurance MEDICARE PART A AND B [facility] SUPP Care Teams Sports Media Relationship Specialty Start Date End Date Jarad Barney DO [address] [facility] [address] [place] [address] PCP - General Internal Medicine 12/18/18
--- OUTSIDE RECORDS SUMMARY | 2025-07-02 13:31 | XMS_ITS | Clinical Summary ---
Author Organization [facility] Address [facility] [place] [address] Care Team Providers Care Manager Human Resources Name Role Phone Unavailable Primary Care Provider Unavailabl e Social History Tobacco Use Types Packs/Day Years Used Date Smoking Tobacco: Never Assessed Comments Unknown Sex and Gender Information Value Date Recorded Sex Assigned at Not on file Legal Sex Female 4:36 PM CDT Gender Identity Not on file Sexual Orientation Not on file Plan of Treatment Health Maintenance Due Date Last Done Comments Colorectal Cancer Screening Colonoscopy (10 Years) 1951 Hepatitis C 1969 DTaP, Tdap and Td Vaccines ( 1 - Tdap) 1970 Mammogram Screening 1991 Pneumococcal Vaccine: 50+ Ye ars (1 of 1 - PCV) 2001 Zoster Vaccines (1 of 2) 2001 Dexa Scan (General) 2016 COVID-19 Vaccine ( - 2024-2 6 season) 2025 Influenza Adult (#1) 2025 RSV Immunization or 60+ Years (1 - 1-dose 75+ series) 2026 Hepatitis A Vaccines Aged Out No long er eligible based on patient's age to complete this topic Meningococcal B Vaccine Aged Out No l onger eligible based on patient's age to complete this topic Meningococcal Vaccine Aged Out No leann natalie eligible based on patient's age to complete this topic RSV Immunizations Under 20 Months Aged Out No longer eligible based on patient's age to complete this topic
--- OUTSIDE RECORDS SUMMARY | 2025-07-02 13:31 | XMS_ITS | Clinical Summary ---
Author Organization [facility] [address] Address [address] [place] [address] Care Team Providers Care Internet Researcher Name Role Phone Ehsan Thomas Primary Care Provider [phone] Allergies Active Allergy Reactions Criticality Noted Date Comments Verapamil Rash Medium 03/12/2011 Medications rosuvastatin (CRESTOR) 5 mg tablet take 1 tablet by oral route 3 times a week 0 0 05/14/2013 Active losartan-hydroCH LOROthiazide (HYZAAR) 100-12.5 mg per tablet Take 1 tablet by mouth daily Active metoprolol tartrate (LOPRESSOR) 25 mg immediate release tablet TAKE 1 TABLET BY MOUTH TWICE DAILY 180 tablet 3 03/12/2025 Active Xarelto 20 mg tablet TAKE 1 TABLET BY MOUTH DAILY 90 tablet 3 03/12/2025 Active Active Problems Problem Noted Date Diagnosed Date Mixed hyperlipidemia 01/11/2022 Localized edema 12/16/2019 Multiple pulmonary nodules 10/18/2016 Overview (12/23/2016): Pulmonary nodules/lesions, multiple Chronic anticoagulation 11/09/2015 Overview (11/04/2016): Chronic anticoagulation Paroxysmal atrial fibrillation (CMS/HCC) 015 Overview (11/04/2016): Paroxysmal atrial fibrillation Benign hypertension 07/06/2015 Overview (11/04/2016): HTN (hypertension), benign Resolved Problems Problem Noted Date Diagnosed Date Resolved Date Palpitations 01/23/2023 12/26/2024 Lightheadedness 12/29/2020 12/26/2024 Dyslipidemia 07/06/2015 01/11/2022 Overview (11/04/2016): Dyslipidemia Encounters Date Type Department Care Team Description 05/27/2025 Telephone [facility] Medical [facility] Cardiology [address] [place] [address] Elton Ren MD 05/14/2025 Telephone [facility] Cardiology [address] [place] [address] Elton Ren MD Letter for School/Work from Last 3 Months Surgical History Surgery Date Site/Laterality Comments OTHER SURGICAL HISTORY s/p benign breast biopsy 1970 and 1971 (right) and 2007 (left) SECTION 1978 Caesarean Section LEFT OOPHORECTOMY 1983 Left Oophorectomy RIGHT OOPHORECTOMY 1984 Right Oophorectomy OTHER SURGICAL HISTORY Breast Bx, bilateral oopherectomy, C section BREAST SURGERY Biopsy 1970, 1971, 2007, 2018 SECTION 09-02-78 Medical History Medical History Date Comments Endometritis Endometriosis Hx Other Medical 2004 Diverticulitis Hx Other Medical Hypertension, H LD, afib, diverticulitis Heart disease Afib Hypertension ? Family History Medical History Relation Name Comments Cancer Brother Geoff Matta Cancer Father Cassius Matta Heart failure Father Cassius Matta Congestive Hea rt Failure; Hypertension Mother Damaris Matta Hypertension; Cancer Mother's Sister Jaleesa Beavers Cancer Paternal Grandfather Larry Matta Relation Name Status Comments Brother Geoff Matta Alive Father Cassius Matta Alive Mother Damaris Matta Alive Mother's Sister Jaleesa Beavers Alive Paternal Grandfather Larry Matta Alive Social History Tobacco Use Types Packs/Day Years Used Date Smoking Tobacco: Never Smokeless Tobacco: Never Tobacco Cessation:Counseling Given: Not Answered Alcohol Use Standard Drinks/Week Comments Yes 0 (1 standard drink = 0.6 oz pur e alcohol) Comments Unknown Sex and Gender Information Value Date Recorded Sex Assigned at Not on file Legal Sex Female 1:58 AM DIESEL POWERPLANT MECHANIC Gender Identity Female 12/28/2020 5:17 PM CDT Sexual Orientation Straight 12/28/2020 5: 17 PM CDT Last Filed Vital Signs Vital Sign Reading Time Taken Comments Blood Pressure 110/62 12/26/2024 1:47 PM CDT Pulse 82 12/26/2024 1:47 PM CDT Temperature 36.4 C (97.5 F) 01/15/2020 1:08 PM CDT Respiratory Rate - - Oxygen Saturation 96% 12/26/2024 1:47 PM CDT Inhaled Oxygen Concentration - - Weight 77.1 kg (170 lb) 12/26/2024 1:47 PM CDT Height 172.7 cm (5' 8) 12/26/2024 1:47 PM CDT Body Mass Index 25.85 12/26/2024 1:47 PM CDT Plan of Treatment Health Maintenance Due Date Last Done Comments Colon Cancer Screening-Colonoscopy 1951 Depression Screening 1951 Fall Risk Assessment 1951 Hepatitis C Screening 1951 Osteoporosis Screening-Bone Density Scan 1951 Hepatitis B Screening 1969 Well Visit 65+ 2016 Zoster Vaccine (2 of 2) 05/10/2019 03/15/2019, 01/11 Breast Cancer Screening-Mammogram 05/06/2022 021, 11/12/2019 Influenza Vaccine (#1) 2025 9, 05/03/2018, 05/04/2017, Additional history exists DTaP/Tdap/Td Vaccine (2 - Td or Tdap) 07/08/2025 07/08/2015 Pneumococcal vaccine 65+ Completed 07/17/2018, 11/2016 Insurance MEDICARE Member Subscriber Plan / Payer (Ef fective 2016-Present) Name:APRYL VAZQUEZ Member ID:[id number] Relation to Subscriber:Self Name:Apryl Vazquez Subscriber ID:[id number] Payer ID:[id number] Group ID:Not on file Type:MEDICARE TRADITIONAL Address: [place] [phone] MEDICARE [facility] MEDICARE [facility] MEDICARE SUPPLEMENT Care Teams Internet Researcher Relationship Specialty Start Date End Date Ehsan Thomas DO PCP - General Internal Medicine 12/26/24
--- OUTSIDE RECORDS SUMMARY | 2025-07-02 13:31 | XMS_ITS | Data Portability ---
Author Organization 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 Patient will come back in a year unless there are new symptoms. Not available 11/02/2021 15:44:39 12/06/2022 12/06/2022 Annual gynecological exam performed. Patient will come back in a year unless there are new symptoms. Not available 12/06/2022 10:56:32 12/10/2024 12/10/2024 Annual gynecological exam performed. Patient will come back in a year unless there are new symptoms. Not available 12/10/2024 10:59:13 Plan of Treatment Reminders Order Date Submit Date Provider Last Modified By Organization Details Last Modified Time Details Appointments None recorded. Lab None recorded. Referral None recorded. Procedures None recorded. Surgeries None recorded. Imaging MAMMO, screening, digital, bilateral 2024 025 [facility], [address], [place], [address], 07:50:38 DEXA, axial skeleton + vertebral fracture assessment 2024 025 [facility], [address], [place], [address], 5 18:09:48 MAMMO, screening, bilateral [address], [address], [place], [address], 3 10:10:12 DEXA, axial skeleton + vertebral fracture assessment 2022 023 [facility], [address], [place], [address], 3 16:57:53 Medication Orders None recorded. Patient TargetsNo targets recorded. Patient InstructionsNo instructions recorded. Reason for Referral None Reported. Results Created Date Observation Date Name Description Value Unit Range Abnormal Flag Note LastModifiedBy Organization Detail LastModifiedTime 12/22/19 22 12/21/2021 MAMMO , dave silver, digit al, bilat eral No observ ation record ed. [address], [place], [address], 12/22/2021 16:10:08 01/14/20 22 MAMMO , diagn ostic , unila teral No observ ation record ed. [facility] [address], [place], [address], 01/18/2022 22:26:45 03/01/20 23 DEXA, axial skele ton + verte bral fract ure asses sment No observ ation record ed. [address], [place], [address], 03/07/2023 14:49:21 06/23/2006/20/2025 MAMMO , dave silver, digit al, bilat eral No observ ation record ed. [facility] [address], [place], [address], 06/28/2025 23:01:46 Result Notes None recorded. Problems Name Problem SNOMED Code Status Onset Date Resolution Date Notes Provider Name and Address Organization Details Recorded Time Screenin g for malignan t neoplasm of cervix Completed 201004/14/2012 Screening for malignant neoplasms of the cervix;Re corded Elsewhere : No Locati on: [facility] So urce: EHR Chron ic: N Practic e ID: 0001 Bill able Time: 02:45:[address] [facility] 2 10:53:41 Adult health examinat ion Completed 201004/14/2012 Routine Medical Exam;Jerardo rded Elsewhere : No Locati on: [facility] So urce: EHR Chron ic: N Practic e ID: 0001 Bill able Time: 02:45:[address] [facility] 2 10:53:41 Screenin g for malignan t neoplasm of rectum Completed 201004/14/2012 Screening for malignant neoplasms of the rectum;Re corded Elsewhere : No Locati on: [facility] So urce: EHR Chron ic: N Practic e ID: 0001 Bill able Time: 02:45:[address] [facility] 2 10:53:41 Speciali d medical examinat ion Completed 201004/14/2012 Gynecolog ical Examinati on;Record ed Elsewhere : No Locati on: [facility] So urce: EHR Chron ic: N Practic e ID: 0001 Bill able Time: 02:45:[address] [facility] 2 10:53:41 Microsco pic hematuri a [id number] Completed 201111/01/2021 MICROSCOP IC HEMATURIA ;Recorded Elsewhere : No Locati on: [facility] So urce: EHR Chron ic: N Practic e ID: 0001 Bill able Time: 03:00:[address] [facility] 2 10:53:41 Screenin g for malignan t neoplasm of cervix Completed 201111/01/2021 Pap Smear;Pra ctice ID: 0001 Aury Baldwin [facility] 2 10:53:41 Speciali zed medical examinat ion Completed 201311/01/2021 Gynecolog ical Examinati on;Record ed Elsewhere : No Locati on: [facility] So urce: EHR Chron ic: N Practic e ID: 0001 Bill able Time: 02:00:00 PM Aury Baldwin [facility] 2 10:53:41 Adult health examinat ion Completed 201311/01/2021 ROUTINE MEDICAL EXAM;Jerardo rded Elsewhere : No Locati on: [facility] So urce: EHR Chron ic: N Practic e ID: 0001 Bill able Time: 02:00:[address] [facility] 2 10:53:41 Pain of breast [id number] Completed 201411/01/2021 Mastodyni a;Recorde d Elsewhere : No Locati on: [facility] So urce: EHR Chron ic: N Practic e ID: 0001 Bill able Time: 02:45:00 PM Aury Baldwin [facility] 2 10:53:41 Screenin g for malignan t neoplasm of rectum Completed 201411/01/2021 Encounter for screening for malignant neoplasm of rectum;Re corded Elsewhere : No Locati on: [facility] So urce: EHR Chron ic: N Practic e ID: 0001 Bill able Time: 02:30:[address] [facility] [address] 10:53:[address] Concept Completed 201611/01/2021 Encntr for general adult medical exam w/o abnormal findings; Recorded Elsewhere : No Locati on: [facility] So urce: EHR Chron ic: N Practic e ID: 0001 Bill able Time: 10:30:00 AM Aury talamantes [facility] 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 [address] 10:[address] Concept Completed 201611/01/2021 Encounter for general adult medical exam w abnormal findings; Practice ID: 0001 Aury talamantes [facility] 2 10:53:41 Evaluati on finding Completed 201811/01/2021 Hematuria , unspecifi ed;Record ed Elsewhere : No Locati on: [facility] So urce: EHR Chron ic: N Practic e ID: 0001 Bill able Time: 04:00:00 PM Aury talamantes [facility] 2 10:53:41 Maximus hematuri a [id number] Completed 201811/01/2021 Gross hematuria ;Recorded Elsewhere : No Locati on: [facility] So urce: EHR Chron ic: N Practic e ID: 0001 Bill able Time: 04:00:00 PM Aury Baldwin [facility] 2 10:53:41 Evaluati on finding Completed 201811/01/2021 Oth abn and inconclus marcela findings on dx imaging of breast;Re corded Elsewhere : No Locati on: [facility] So urce: EHR Chron ic: N Practic e ID: 0001 Bill able Time: 04:46:34 PM Aury Baldwin [facility] 2 10:53:41 Problem Notes None recorded. Procedures Surgical History Date Name Laterality Status Provider Name and Address Organization Details Recorded Time 04/30/20 24 completed Cecy Aguilar [facility] 12/10/2024 11:00:17 04/30/20 24 Date of Last Colonoscopy completed [facility] 12/10/2024 11:00:17 02/27/20 24 Date of Last Mammogram completed [facility] 12/10/2024 11:00:17 01/01/20 21 Most Recent Bone Density completed [facility] 11/02/2021 15:45:22 06/07/20 17 Date of Last Pap Smear completed [facility] 11/02/2021 15:46:08 07/31/18 79 Caesarean Section completed [facility] 11/02/2021 15:50:30 Colonoscopy completed [facility] 11/02/2021 15:45:32 Breast Biopsy completed [facility] 11/02/2021 15:45:32 Laparotomy completed [facility] 11/02/2021 15:45:32 resection of bilateral fallopian tubes completed VÍCTOR Flores [address], [place], [address], [facility] 12/10/2024 12:37:04 oophorectomy completed VÍCTOR Flores [address], [place], [address], [facility] 12/10/2024 12:37:10 oophorectomy completed VÍCTOR Flores [address], [place], [address], [facility] 12/10/2024 12:37:14 Imaging Results None recorded. Procedure Notes None recorded. Medical Equipment None Reported. Allergies Allergen ID Allergen Name Allergen Category Reaction Reaction Severity Criticality Documentation Date Start Date Code Code System Note Provider Name and Address Organization Details Recorded Time 94710 verapamil medicatio n Not available Not available Not available 07/17/2020 33523 RxNorm Comme nt: Locat ion: Duane Kerr r; Not Available [facility] 14:20:44 Medications Name Sig Start Date Stop Date Status Note LastModified by Organization Details LastModified Time valsartan 160 mg-hydroc hlorothia zide 12.5 mg tablet take 1 tablet by oral route every day 09/07 completed Prescrib ed Elsewher e: Yes Loca tion: Viri gil [facility] odify By: Encount er DateTime : 04/25/20 13 02:30:00 PM Not Available Not Available Not Available ciproflox acin 250 mg tablet take 1 tablet by oral route every 12 hours 11/02 completed Prescrib ed Elsewher e: No Locat ion: Viri gil [facility] odify By: ranjan bateman DateTime : 09/07/19 19 04:00:00 PM Not Available Not Available Not Available Macrobid 100 mg capsule take 1 capsule by oral route every 12 hours with food 06/22 completed Prescrib ed Elsewher e: No [facility] odify By: beau horneunter DateTime : 06/13/20 17 04:47:19 PM Not Available Not Available Not Available omeprazol e 10 mg capsule,d elayed release take 2 capsule by oral route every day before a meal 06/02 completed Prescrib ed Elsewher e: Yes [facility] By: dada horneunter DateTime : 04/12/20 12 03:00:00 PM Not Available Not Available Not Available Protonix 40 mg intraveno us solution infuse by intraven ous route every day 04/12 completed Prescrib ed Elsewher e: Yes [facility] By: goldy harrell DateTime : 04/07/20 11 02:45:00 PM Not Available Not Available Not Available Lanoxin Pediatric 100 mcg/mL (0.1 mg/mL) injection solution inject 1.25 millilit er (125MCG) by intraven ous route every day 04/12 completed Prescrib ed Elsewher e: Yes Loca tion: Viri gil [facility] odify By: goldy harrell DateTime : 03/12/20 11 09:27:10 AM Not Available Not Available Not Available Baby Aspirin 81 mg chewable tablet chew 1 tablet (81MG) by oral route every day 06/02 completed Prescrib ed Elsewher e: Yes Loca tion: Viri gil [facility] odify By: dada Gil ncounter DateTime : 03/12/20 11 09:27:10 AM Not Available Not Available Not Available lisinopri l 2.5 mg tablet take 1 tablet by oral route every day 04/12 completed Prescrib ed Elsewher e: Yes Loca tion: Viri gil [facility] odify By: goldy harrell DateTime : 04/07/20 11 02:45:00 PM Not Available Not Available Not Available amoxicill in 500 mg-potass ium clavulana te 125 mg tablet TAKE 1 TABLET BY MOUTH TWICE DAILY 12/10 completed Not Available Not Available Not Available metoprolo l tartrate 5 mg/5 mL intraveno us solution inject 5 millilit er by intraven ous route every 2 minutes for 3 doses 11/02 completed Prescrib ed Elsewher e: Yes Loca tion: Viri gil [facility] odify By: dada horneuntanil DateTime : 06/02/20 16 02:30:00 PM Not Available Not Available Not Available digoxin 250 mcg/mL (0.25 mg/mL) injection syringe inject 0.5 millilit er (125MCG) by intraven ous route every day 06/02 completed Prescrib ed Elsewher e: Yes Loca tion: Viri gil [facility] odify By: dada horneuntanil DateTime : 04/12/20 12 03:00:00 PM Not Available Not Available Not Available Diovan 40 mg tablet take 2 tablet by oral route every day 01/07 completed Prescrib ed Elsewher e: Yes Loca tion: Viri gil [facility] odify By: [email or web address] Encount er DateTime : 04/12/20 12 03:00:00 PM Not Available Not Available Not Available rosuvasta tin 5 mg tablet take 2 tablet (10MG) by oral route every day active Not Available Not Available No t Available metoprolo l tartrate 25 mg tablet active Not Available Not Available Not Available Calcio Rach 500 mg tablet 04/25 completed Prescrib ed Elsewher e: Yes Loca tion: [facility] odify By: goldy harrell DateTime : 03/12/20 11 09:27:10 AM Not Available Not Available Not Available losartan 100 mg-hydroc hlorothia zide 12.5 mg tablet TAKE 1 TABLET BY MOUTH ONCE DAILY active Not Available Not Available No t Available [facility] Metoprolo l Tartrate 11/02 completed Not Available Not Available Not Available Fish Oil 360 mg-1,200 mg capsule 11/02 completed Prescrib ed Elsewher e: Yes Loca tion: [facility] odify By: santos bateman DateTime : 03/12/20 11 09:27:10 AM Not Available Not Available Not Available Xarelto 10 mg tablet take 1 tablet by oral route every day 11/02 completed Prescrib ed Elsewher e: Yes Loca tion: [facility] odify By: dada almaguer DateTime : 06/02/20 16 02:30:00 PM Not Available Not Available Not Available Xarelto 20 mg tablet active Not Available Not Available Not Available Vitals Date Recorded Systolic And Diastolic Provider Name and Address Organization Details Last Updated DateTime 11/02/2021 128/82 mm[Hg] Nicky Garcias, TREV[facility]- [address], [place], [address], [place] - [facility] 11/02/2021 16:13:12 Date Recorded Body height Body mass index (BMI) Body weight Provider Name and Address Organization Details Last Updated DateTime 11/02/2021 172.72 cm 25.2 kg/m2 80024.33 g Aury Baldwin [facility] 11/02/2021 15:45:01 Date Recorded Body height Body mass index (BMI) Body weight Systolic And Diastolic Provider Name and Address Organization Details Last Updated DateTime 12/06/2022 172.72 cm 24.5 kg/m2 18801.37 g 119/72 mm[Hg] Hedy Wong [facility] 12/06/2022 10:56:58 Date Recorded Body height Body mass index (BMI) Body weight Systolic And Diastolic Provider Name and Address Organization Details Last Updated DateTime 12/10/2024 172.72 cm 26.1 kg/m2 67611.45 g 120/76 mm[Hg] Cecy Aguilar [facility] 12/10/2024 11:00:05 Social History Question Answer Notes LastModified by Organizat ion Details LastModified Time Tobacco Smoking Status Never Smoker Hedy Wong [facility] 12/06/2022 10:57:40 Are You Blind Or Do You Have Difficulty Seeing? No Information n ot available 11/02/2021 What Is Your Level Of Caffeine Consumption? Occasional Information not available 11/02/2021 How Much Tobacco Do You Chew? None Information not available 12/06/2022 In The 14 Days Before Symptom Onset, Have You Had Close Contact With A Laboratory-confirm ed COVID-19 While That Case Was Ill? No Information n ot available 11/02/2021 In The 14 Days Before Symptom Onset, Have You Had Close Contact With A Person Who Is Under Investigation For COVID-19 While That Person Was Ill? No Information not available 11/02/2021 Have You Been To An Area Known To Be High Risk For COVID-19? No Information not available 11/02/2021 Are You Deaf Or Do You Have Serious Difficulty Hearing? No Information not available 11/02/2021 What Type Of Diet Are You Following? REGULAR Information n ot available 11/02/2021 What Is The Highest Grade Or Level Of School You Have Completed Or The Highest Degree You Have Received? RH02075-9 Information not available 11/02/2021 Are There Any Guns Present In Your Home? No [email or web address] Information not available 12/10/2024 Do You Use Protection During Sex? No Information not available 11/02/2021 Do You Use Your Seat Belt Or Car Seat Routinely? Yes Information not available 11/02/2021 Do You Have Smoke And Carbon Monoxide Detectors In Your Home? Yes Information not available 11/02/2021 How Much Tobacco Do You Smoke? No Information not available 11/02/2021 Do You Use Sunscreen Routinely? Yes Information not available 11/02/2021 Have You Used IV Drugs? No Information not available 11/02/2021 Do You Have Difficulty Walking Or Climbing Stairs? No Information not available 12/06/2022 Sex: Unknown Functional Status Question Answer Note LastModified by Organizat ion Details LastModified Time Do you use any illicit or recreational drugs? No Information not available 11/02/2021 What is your level of alcohol consumption? Occasional Information not available 11/02/2021 Are you able to walk independently without assistance or assistive devices? YESWOREST Information not available 11/02/2021 Are you able to care for yourself independently? Yes Information not available 12/06/2022 What is your occupation? retired Information not available 11/02/2021 Do you have difficulty dressing, bathing, grooming, or toileting? No Information not available 12/06/2022 What is your exercise level? Moderate Information not available 11/02/2021 Mental Status Question Answer Note LastModified by Organization D etails LastModified Time Do you feel stressed (tense, restless, nervous, or anxious, or unable to sleep at night)? PT0417-5 Information not available 11/02/2021 Family History Relationship Description Onset Age of this Age Resolved Age Notes LastModified by Organization Details LastModified Time Father Heart disease CHF Not available 2021 14:26:19 Father Hypertensive disorder Not available 2021 15:45:11 Maternal Aunt Malignant neoplasm of breast Not available 2021 15:45:11 Mother Hypertensive disorder Not available 2021 15:45:11 Maternal Grandfather Heart disease Not available 2021 15:49:17 Maternal Grandmother Hypertensive disorder Not available 2021 15:49:32 Paternal Grandfather Malignant neoplasm of colon Not available 2021 15:49:47 Medical History Condition Response Heart Problems Y Hypertension Y High Cholesterol Y Gynecological History Statement/Question Response Abnormal Pap N Date of Last Mammogram 02/27/2024 On BCP's at Conception? N N STIs/STDs N HPV Vaccine N Current Control Method Menopause Age at First Child 28 Date of Last Colonoscopy 04/30/2024 Most Recent Bone Density 12/31/2020 Sexually Active? Y Menses Monthly N Age of first menstrual cycle 14 Date of Last Pap Smear 06/07/2017 Sexual Problems? N LMP Unknown 04/30/2024 N Obstetrics History GPAL:G 3 P 0 0 2 1 Type Value Spontaneous 1 Living 1 Ectopics 1 Total 3 Past Encounters Encounter ID Performer Location Encounter Start Date Encounter Closed Date Diagnosis/Indication Diagnosis SNOMED-CT Code Diagnosis ICD10 Code Diagnosis IMO Codes Diagnosis Note [id number] Nicky Garcias [facility] [address] [address] 11/02/2021 15:18:04 11/02/2021 17:09:36 Gynecologic examination 14519245 Z01.419 Take Calcium with Vitamin D 12-1500mg daily. Do monthly self breast exams. It is advised to get annual flu shot in the fall and she could obtain at [facility] or [facility] care clinic. If you haven't received the Tdap vaccine in the last 10 years you should obtain one as well. Have mammogram yearly, bone density every 2-3 years and colonoscop y every 5-10 years depending on findings and history. Engage in daily exercise of low impact aerobic exercise 45-60 minutes 4-5 times weekly. Avoid tobacco and illicit drugs as well as using moderation with alcohol intake less than 1-2 8 oz beverages daily. This lifestyle behavior pattern will lead to less health conditions and longer life span. If BMI greater than 25 weight watchers or dietary consult advised. Questions have been answered. Patient appears to understand instructio ns, but if you have any further questions call or respond to this email Pap/hpv d/c after age 65yo per asccp unless otherwise indicated. STD Screen declinedGe netic Screen discussedC olon Screen due 2023 per pt PCP updatedDex a Screen due 2022Christopher Shea SCD PCPMammo orderedWWE q2yrs prn [id number] [facility] [address] [address] 12/06/2022 10:48:58 12/06/2022 11:35:05 Gynecologic examination 75286676 Z01.419 Take Calcium with Vitamin D 12-1500mg daily. Do monthly self breast exams. It is advised to get annual flu shot in the fall and she could obtain at [facility] or [facility] clinic. If you haven't received the Tdap vaccine in the last 10 years you should obtain one as well. Have mammogram yearly, bone density every 2-3 years and colonoscop y every 5-10 years depending on findings and history. Engage in daily exercise of low impact aerobic exercise 45-60 minutes 4-5 times weekly. Avoid tobacco and illicit drugs as well as using moderation with alcohol intake less than 1-2 8 oz beverages daily. This lifestyle behavior pattern will lead to less health conditions and longer life span. If BMI greater than 25 weight watchers or dietary consult advised. Questions have been answered. Patient appears to understand instructio ns, but if you have any further questions call or respond to this email Pap/hpv d/c after age 65yo per asccp unless otherwise indicated. STD Screen declinedGe netic Screen discussedC olon Screen due 2023 per pt PCP updatedDex a Screen due 2022-order edRoutine Labs UTD PCPMammo orderedWWE q2yrs prn Screening mammography 24 618064 Z12.31 Postmenopa usal osteopenia 227872428 M85.80 [id number] VÍCTOR Flores [place] [address] [address] 12/10/2024 10:42:05 12/10/2024 12:45:10 Gynecologic examination 73711887 Z01.722 [id number] WWEpostmen opausalPap - not indicated todaySTI screen - declinedMa mmogram - order givenColon cancer screening - UTDDexa - order givenRoumary ne labs - UTD/PCPRTC in 1 yr or sooner if needed Do monthly self breast exams.It is advised to get annual flu shot in the fall and she could obtain at local pharmacy. If you haven't received the Tdap vaccine in the last 10 years you should obtain one as well.Have mammogram yearly, bone density every 2-3 years and stay up to date on colon cancer screening. Engage in regular exercise. Avoid tobacco and illicit drugs. This lifestyle behavior pattern will lead to less health conditions and longer life span. If BMI greater than 25 dietary consult advised.Qu estions have been answered. Screening mammography 24 942191 Z12.31 [id number] Postmenopausal state 764 68892 Z78.0 [id number] Health Concerns Section Related Observation LastModified by Organization Detai ls LastModified Time None Recorded Concern Status LastModified by Organization Details LastModified Time None Recorded Advance Directives Directive None Recorded Payers Insurance Date Sequence Insurance Name Policy Number Policy [place] Covered Member ID [place] Member ID Guarantor Name 11/02/2021 2 [place] [facility] PRIOR TO 02/28/2025 (MEDICAID REPLACEMENT - HMO) [id number] Elissa Vazquez [id number] Elissalisa Vazquez 12/08/2024 1 [place] Elissa Vazquez [id number] Elissa Vazquez 12/06/2022 2 [place] [id number] Elissa Vazquez [id number] Elissa Vazquez 12/07/2024 2 [id number] Elissa Vazquez [id number] Elissa Vazquez Notes Date Note Type Note Provider Name and Address Organization Details Recorded Time 2 text/html 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 For vaginal bleeding, patient reportshistory of menopause having occurredandno history of post menopausal bleeding. For urinary symptoms, patient reportsno hematuria,no incontinence,no nocturia, andno urinary frequency. For vulva, patient reportsno genital lesionandno vulvar atrophy. For vagina, patient reportsnormal vaginal dischargeandno vaginal atrophy.Breast symptomsFor breast, patient reportsno breast lump,no nipple discharge, andno breast pain.Psychological symptomsFor sexual complaints, patient reportsno sexual complaints. For psychological symptoms, patient reportsno depressionandno anxiety.Preventative measuresFor preventive measures, patient reportsencourage regular mammograms starting age 40,encourage self breast examination,encourage regular exercise,encourage no tobacco use,needs to schedule mammogram, andhistory of recent colonoscopy. Nicky Garcias [facility] [address], [place], [address], [facility] 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 For vaginal bleeding, patient reportshistory of menopause having occurredandno history of post menopausal bleeding. For urinary symptoms, patient reportsno hematuria,no incontinence,no nocturia, andno urinary frequency. For vulva, patient reportsno genital lesionandno vulvar atrophy. For vagina, patient reportsnormal vaginal dischargeandno vaginal atrophy.Breast symptomsFor breast, patient reportsno breast lump,no nipple discharge, andno breast pain.Psychological symptomsFor sexual complaints, patient reportsno sexual complaints. For psychological symptoms, patient reportsno depressionandno anxiety.Preventative measuresFor preventive measures, patient reportsencourage regular mammograms starting age 40,encourage self breast examination,encourage regular exercise,encourage no tobacco use,needs to schedule mammogram,history of recent colonoscopy, andneeds to schedule bone density. Nicky Garcias [facility] [address], [place], [address], [facility] 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 For vaginal bleeding, patient reportshistory of menopause having occurredandno history of post menopausal bleeding. For urinary symptoms, patient reportsno hematuria,no incontinence,no nocturia, andno urinary frequency. For vulva, patient reportsno genital lesionandno vulvar atrophy. For vagina, patient reportsnormal vaginal dischargeandno vaginal atrophy.Breast symptomsFor breast, patient reportsno breast lump,no nipple discharge, andno breast pain.Psychological symptomsFor sexual complaints, patient reportsno sexual complaints. For psychological symptoms, patient reportsno depressionandno anxiety.Preventative measuresFor preventive measures, patient reportsencourage regular mammograms starting age 40,encourage self breast examination, andencourage regular exercise.74yo wwepostmenopausalno h/o abnormal papsdexa last 2022mammogram last ol[facility] 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 Status 11/03/19 22 1 CLOSED Fetus Data First Name Last Name Admitted to NICU Weight (g) Sex Living Outcome Pediatric Complications Fetus ID Race Codes Race Delivery Type [id number] Primary Micah Calculation Initial Micah Date Initial Exam Date Initial Exam Provider Initial Ultrasound Date Last Menstrual Period Date Ultra Sound Weeks Gestation 0 Eighteen To Twenty Week Micah Update Ultra Sound Date Fundal Height At Umbil Quickening Date Ultra Sound Latest Weeks Gestation Final Micah Confirmed By Final Micah Confirmed Date Final Micah Date Ultra Sound Latest Days Gestation 0 0 Menstrual History Last Menstrual Date Menses Monthly On Bcp Conception Prior Menses Frequency Hcg Plus Date Menarche Onset Age Delivery Information Delivery Date Delivery Type Labor Anesthesia Weeks Gestation Incision Type Labor Labor Length Hrs Delivered By Post Complications Tubal Sterilization Discharge Date Comments 9 Discharge Information Feeding Method Contraceptive Method Maternal HG B and HCT Levels Ob Episode Information Episode Created Date Number of Fetuses Patient Bloodtype Patient rh Status Prepregnancy Weight lbs Domestic Partner Domestic Partner Phone Father Name Hydroelectric Production Manager Status 11/03/19 22 1 CLOSED Fetus Data First Name Last Name Admitted to NICU Weight (g) Sex Living Outcome Pediatric Complications Fetus ID Race Codes Race Delivery Type , Spontane ous [id number] Micah Calculation Initial Micah Date Initial Exam Date Initial Exam Provider Initial Ultrasound Date Last Menstrual Period Date Ultra Sound Weeks Gestation 0 Eighteen To Twenty Week Micah Update Ultra Sound Date Fundal Height At Umbil Quickening Date Ultra Sound Latest Weeks Gestation Final Micah Confirmed By Final Micah Confirmed Date Final Micah Date Ultra Sound Latest Days Gestation 0 0 Menstrual History Last Menstrual Date Menses Monthly On Bcp Conception Prior Menses Frequency Hcg Plus Date Menarche Onset Age Delivery Information Delivery Date Delivery Type Labor Anesthesia Weeks Gestation Incision Type Labor Labor Length Hrs Delivered By Post Complications Tubal Sterilization Discharge Date Comments 2 Discharge Information Feeding Method Contraceptive Method Maternal HG B and HCT Levels Ob Episode Information Episode Created Date Number of Fetuses Patient Bloodtype Patient rh Status Prepregnancy Weight lbs Domestic Partner Domestic Partner Phone Father Name Hydroelectric Production Manager Status 11/03/19 22 1 CLOSED Fetus Data First Name Last Name Admitted to NICU Weight (g) Sex Living Outcome Pediatric Complications Fetus ID Race Codes Race Delivery Type Ectopic [id number] Micah Calculation Initial Micah Date Initial Exam Date Initial Exam Provider Initial Ultrasound Date Last Menstrual Period Date Ultra Sound Weeks Gestation 0 Eighteen To Twenty Week Micah Update Ultra Sound Date Fundal Height At Umbil Quickening Date Ultra Sound Latest Weeks Gestation Final Micah Confirmed By Final Micah Confirmed Date Final Micah Date Ultra Sound Latest Days Gestation 0 0 Menstrual History Last Menstrual Date Menses Monthly On Bcp Conception Prior Menses Frequency Hcg Plus Date Menarche Onset Age Delivery Information Delivery Date Delivery Type Labor Anesthesia Weeks Gestation Incision Type Labor Labor Length Hrs Delivered By Post Complications Tubal Sterilization Discharge Date Comments 5 Discharge Information Feeding Method Contraceptive Method Maternal HG B and HCT Levels
== END 2025-07-02 12:20 | disposition home or self-care (01) ==
LOC: ANHFOHIMG 12:20
PROVIDERS: PCP Internal Medicine; Visit Provider Nurse Practitioner
DX: Z13.820 Encounter for screening for osteoporosis (principal); M85.851 Other specified disorders of bone density and structure, right thigh
CPT/HCPCS: 77080